=== PATIENT | male | born 1940 | race Caucasian/White ===

== ENCOUNTER 2017-03-18 17:21 | Outpatient (CLI) | payer MEDICARE | END 2017-03-18 17:22 | disposition EMS.NT | LOC: EMS 17:21 | PROVIDERS: ATTEND Surgery | DX: H53.9 Unspecified visual disturbance (principal) ==

== ENCOUNTER 2017-03-18 18:16 | Emergency (ER) | payer MEDICARE, OTHER ==
--- NOTE | 2017-03-18 19:02 | ED Physician Documentation ---
PD HPI OPHTHO - Stated complaint Stated Complaint: LOSS OF VISION - Chief complaint Chief Complaint: Heent - History obtained from History obtained from: Patient - History of Present Illness Timing - onset: How many hours ago (2), Today Timing - duration: Hours (10 29/2) Timing - details: Abrupt onset (onset at rest of right eye upper visual field loss "like someone pulled a curtain part way down over my eye". No injury/ exertion, no headache, no flashing lights. He feels vision in rest of visual field is normal. No focal weaknesses arms, legs, face.) Location: Right Quality / character: No: Itching, Burning, Aching Associated symptoms: Decreased vision. No: Redness, Swelling, Discharge, Matting, FB sensation, Photophobia, Headache Contributing factors: No: Recent URI, FB, Wears glasses, Wears contacts Similar symptoms before: Has not had sx before Recently seen: Not recently seen Review of Systems Constitutional: denies: Fever, Chills Nose: denies: Rhinorrhea / runny nose, Congestion Throat: denies: Sore throat Respiratory: denies: Cough Neurologic: denies: Focal weakness, Numbness, Confused, Altered mental status, Headache PD PAST MEDICAL HISTORY - Past Medical History Cardiovascular: None Respiratory: None Neuro: None Endocrine/Autoimmune: None - Present Medications Home Medications: Ambulatory Orders Medication Instructions Recorded Confirmed Amlodipine Besylate 1 tab PO DAILY 03/18/17 03/18/17 Atorvastatin [Lipitor] 1 tab PO DAILY 03/18/17 03/18/17 Levothyroxine [Synthroid] 1 tab PO DAILY 03/18/17 03/18/17 - Allergies Allergies/Adverse Reactions: Allergies Allergy/AdvReac Type Severity Reaction Status Date / Time No Known Drug Allergies Allergy Verified 03/18/17 18:29 PD ED PE NORMAL - Vitals Vital signs reviewed: Yes - General General: Alert and oriented X 3, No acute distress, Well developed/nourished - HEENT HEENT: PERRL, EOMI, Ears normal, Moist mucous membranes, Pharynx benign, Other ( visual field testing shows defect for upper medial and some upper lateral martinez on right eye, normal on left. 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 ). No: EOM palsy, Corneal abrasion, Fluorescein uptake, Retinal hemorrhage Results - Vitals Vitals: Vital Signs - 24 hr 03/18/17 03/18/17 03/18/17 18:24 19:19 19:51 Temperature 37.2 C Heart Rate 118 H 90 86 Respiratory 18 16 15 Rate Blood Pressure 165/83 H 130/76 148/79 H O2 Saturation 95 95 97 03/18/17 03/18/17 03/18/17 20:49 21:12 21:38 Temperature Heart Rate 85 82 76 Respiratory 15 20 15 Rate Blood Pressure 129/83 H 143/82 H 138/75 H O2 Saturation 95 96 96 Oxygen O2 Source Room air - Labs Labs: Laboratory Tests 03/18/17 03/18/17 20:56 20:56 WBC 10.9 H RBC 4.83 Hgb 14.6 Hct 42.4 MCV 87.7 MCH 30.2 MCHC 34.5 RDW 12.5 Plt Count 308 MPV 8.3 Neut # 8.5 H Lymph # 1.6 [place] # 0.7 Eos # 0.1 Baso # 0.1 Absolute Nucleated RBC 0.00 Nucleated RBCs 0.0 ESR 11 - Rads (name of study) head CT Radiology: Prelim report reviewed (no acute process) PD MEDICAL DECISION MAKING - ED course Complexity details: reviewed results (head CT without acute process), considered differential (consdier early retinal detachment, retinal artery branch occlusion, vasculitis, optic chiasm process. ), d/w patient, d/w retirement consultant (Dr. Cunningham, who felt retinal detachment less likely given no bleeding nor "flashes", etc. and artery branch occlusion more likely. No treatment but general vascular care (asa, BP, etc). To get ESR for potential vasculitis. To be seen in office tomorrow. ) Departure - Departure Disposition: Home, Self Care Clinical Impression: Visual loss Condition: Stable Record reviewed to determine appropriate education?: Yes Follow-Up: Dontae Lan MD [Primary Care Provider] - Dewey Philip MD [Provider Admit Priv/Credential] - Daniel Whitman MD [Provider Admit Priv/Credential] - Comments: Follow up with Civil [employer] tomorrow, call for appt: either local Ophthalmologists Dr. Philip or Dr. Whitman, or can see Dr. Cunningham in [place] , whose office number is [phone]. Take baby aspirin 81 mg daily. No vigorous activities. Return if worsening meanwhile. The concern is for a blockage in one of the small vessels to the retina, for which no particular treatment, or inflammation of the blood vessels, which is less likely, versus early retinal detachment. Discharge Date/Time: 03/18/17 21:39
--- NOTE | 2017-03-18 20:24 | CT Preliminary Report ---
Exam: CT Head W/O IMPRESSION: Unremarkable noncontrast head CT. No intracranial bleed or mass effect. [facility] SITE ID: [id number]
--- NOTE | 2017-03-18 20:27 | CT Report ---
EXAM: CT HEAD EXAM DATE: 03/18/2017 07:47 PM. CLINICAL HISTORY: Right upper vision loss. COMPARISON: None. TECHNIQUE: Multiaxial CT images were obtained from the foramen magnum to the vertex. IV contrast: Non e. Reformats: Coronal. In accordance with CT protocol optimization, one or more of the following dose reduction techniques w ere utilized for this exam: automated exposure control, adjustment of mA and/or KV based on patient s ize, or use of iterative reconstructive technique. FINDINGS: Parenchyma: No intraparenchymal hemorrhage. No evidence of mass, midline shift, or CT findings of inf arction. Live-white differentiation is distinct. Extraaxial Spaces: Normal for age. No subdural or epidural collections identified. Ventricles: Normal in size and position. Sinuses: Imaged paranasal sinuses, orbits, and mastoids show no significant abnormality. Bones: No evidence of fracture or calvarial defect. Other: None. IMPRESSION: Unremarkable noncontrast head CT. No intracranial bleed or mass effect. [facility] Referring Provider Line: [phone] SITE ID: [id number]
[2017-03-18] MEDS ORDERED: DEXAMETHASONE 10 MG/ML VIAL ONE (20:45)
[2017-03-18] MEDS ORDERED: ASPIRIN CHEW 81 MG TABLET ONE (20:47)
[2017-03-18] MEDS: DEXAMETHASONE 10 MG/ML VIAL PO STA (20:47)
[2017-03-18] MEDS: ASPIRIN CHEW 81 MG TABLET PO STA (20:48)
[2017-03-18 21:02] LABS: BASOPHILS # (AUTO) 0.1 10^3/uL (0.0-0.1); BASOPHILS % (AUTO) 0.6 %; EOSINOPHILS # (AUTO) 0.1 10^3/uL (0.0-0.7); EOSINOPHILS % (AUTO) 0.9 %; HCT - HEMATOCRIT 42.4 % (42.0-52.0); HGB - HEMOGLOBIN 14.6 g/dL (14.0-18.0); LYMPHOCYTES # (AUTO) 1.6 10^3/uL (1.5-3.5); LYMPHOCYTES % (AUTO) 14.7 %; MEAN CORPUSCULAR HEMOGLOBIN 30.2 pg (27.0-31.0); MEAN CORPUSCULAR HGB CONC 34.5 g/dL (32.0-36.0); MEAN CORPUSCULAR VOLUME 87.7 fL (80.0-94.0); MEAN PLATELET VOLUME 8.3 fL (7.4-11.4); MONOCYTES # (AUTO) 0.7 10^3/uL (0.0-1.0); MONOCYTES % (AUTO) 6.2 %; NEUTROPHILS # (AUTO) 8.5 10^3/uL (1.5-6.6); NEUTROPHILS % (AUTO) 77.6 %; RED BLOOD COUNT 4.83 10^6/uL (4.70-6.10); RED CELL DISTRIBUTION WIDTH 12.5 % (12.0-15.0); UNCORRECTED WHITE BLOOD COUNT 10.9 x10^3/uL; WHITE BLOOD COUNT 10.9 x10^3/uL (4.8-10.8)
[2017-03-18 21:39] VITALS: BP 138/75
== END 2017-03-18 21:39 | disposition home or self-care (01) ==
LOC: ED 18:16
DX: H54.61 Unqualified visual loss, right eye, normal vision left eye (principal)
CPT/HCPCS: 36415; 70450; 85025; 85651; 99284

== ENCOUNTER 2017-04-14 07:42 | Outpatient (CLI) | payer OTHER, MEDICARE ==
--- NOTE | 2017-04-15 10:21 | MRI Report ---
EXAM MRA BRAIN EXAM DATE: 04/14/2017 09:29 AM. CLINICAL HISTORY: Amaurosis fugax. COMPARISON: CT scan of the head without contrast 03/18/2017. TECHNIQUE: Multiplanar, multisequence MRA sequences of the brain were performed. Other: None. Post-pr ocessing: Multiplanar 3D MIP reconstructions. IV Contrast: None. FINDINGS: The right vertebral artery intradural segment is smooth and nonstenotic. The right posterior inferior cerebellar artery is without flow-limiting stenosis. The left vertebral artery intradural segment is without flow-limiting stenosis. The right and left anterior inferior cerebellar arteries are without flow-limiting stenosis. The basi lar artery is without flow-limiting stenosis. The right superior cerebellar artery and the left superior cerebellar artery are without flow-limitin g stenosis. The right and left P1 and P2 segments of the posterior cerebral arteries are without flow-limiting st enosis. The bilateral intracranial internal carotid arteries are without flow-limiting stenosis. The bilateral M1 and proximal M2 segments of the middle cerebral arteries are without flow-limiting s tenosis. The bilateral A1, A2 and A3 segments of the anterior cerebral arteries are without flow-limiting sten osis. There is a small anterior communicating artery. IMPRESSION: 1. There is no hemodynamically significant stenosis within the head. There is no evidence of cerebral aneurysm. Referring Provider Line: [phone] SITE ID: [id number]
== END 2017-04-14 07:43 | disposition home or self-care (01) ==
LOC: DI 07:42
PROVIDERS: ATTEND Internal Medicine
DX: G45.3 Amaurosis fugax (principal)
CPT/HCPCS: 70544

== ENCOUNTER 2017-11-19 06:06 | Outpatient (CLI) | payer MEDICARE | END 2017-11-19 06:07 | disposition critical access hospital (66) | LOC: EMS 06:06 | PROVIDERS: ATTEND Surgery | DX: R42 Dizziness and giddiness (principal); R11.0 Nausea | CPT/HCPCS: A0425; A0427 ==

== ENCOUNTER 2017-11-19 06:29 | Emergency (ER) | payer OTHER, MEDICARE ==
[2017-11-19 06:42] VITALS: BP 131/93
--- NOTE | 2017-11-19 07:11 | ED Physician Documentation ---
History of Present Illness - Stated complaint Stated Complaint: DIZZY/NAUSEA - Chief complaint Chief Complaint: Neuro - History obtained from History obtained from: Patient - History of Present Illness Timing: Enter time (0500), Today - Additonal information Additional information: 77-year-old male was well when he awoke at 04:00 this morning to urinate. He went to bed is usually does not get up until 5. When he awoke at 5:00 this morning he was profoundly dizzy nauseated and vomited. He has had this happen to him once previously years ago. He continues to have some dizziness especially if he moves his head or looks to the far side. He continues to have some visual field defect that he has had since a TIA last February. Review of Systems Constitutional: denies: Fever, Chills, Myalgias Eyes: reports: Decreased vision Ears: denies: Ear pain Nose: denies: Rhinorrhea / runny nose, Congestion Throat: denies: Sore throat Cardiac: denies: Chest pain / pressure, Palpitations Respiratory: denies: Dyspnea, Cough GI: denies: Abdominal Pain, Nausea, Vomiting : denies: Dysuria, Frequency Skin: denies: Rash Musculoskeletal: denies: Neck pain, Back pain, Extremity pain Neurologic: denies: Generalized weakness, Focal weakness, Numbness PD PAST MEDICAL HISTORY - Past Medical History Past Medical History: Yes Cardiovascular: High cholesterol Respiratory: None Neuro: TIA Endocrine/Autoimmune: HyPOthyroidism Other Past Medical History: Irregular HR - Past Surgical History Past Surgical History: Yes Ortho: Other - Present Medications Home Medications: Ambulatory Orders Medication Instructions Recorded Confirmed Atorvastatin [Lipitor] 1 tab PO DAILY 03/18/17 11/19/17 Amlodipine Besylate 1 tab PO DAILY 11/19/17 11/19/17 Levothyroxine Sodium 1 tab PO DAILY 11/19/17 11/19/17 Meclizine HCl 25 mg PO Q6HR PRN #20 tab.chew 11/19/17 - Allergies Allergies/Adverse Reactions: Allergies Allergy/AdvReac Type Severity Reaction Status Date / Time No Known Drug Allergies Allergy Verified 11/19/17 06:36 - Social History Does the pt smoke?: No Smoking Status: Never smoker Does the pt drink ETOH?: Yes Does the pt have substance abuse?: No - Immunizations Immunizations are current?: Yes - POLST Patient has POLST: No PD ED PE NORMAL - Vitals Vital signs reviewed: Yes (hypertensive, mild ) - General General: Alert and oriented X 3, No acute distress, Well developed/nourished - HEENT HEENT: Atraumatic, PERRL, EOMI, Other (There is cerumen bilaterally this is removed from the left side to reveal a normal TM. There are 3 beats of nystagmus to the left and one to the right. 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, No motor deficit, No sensory deficit, Normal speech Eye Opening: Spontaneous Motor: Obeys Commands Verbal: Oriented GCS Score: 15 - Psych Psych: Normal mood, Normal affect Results - Vitals Vitals: Vital Signs - 24 hr 11/19/17 11/19/17 06:30 09:14 Temperature 36.3 C L Heart Rate 82 75 Respiratory 18 16 Rate Blood Pressure 131/93 H 131/93 H O2 Saturation 95 96 Oxygen O2 Source Room air - EKG (time done) 0634 Rate: Rate (enter#) (82) Rhythm: Other (PVC's) Intervals: Prolonged QT Compare to prior EKG: Old EKG unavailable Computer interpretation: Agree with computer - Labs Labs: Laboratory Tests 11/19/17 11/19/17 11/19/17 07:38 07:38 07:38 WBC 10.0 RBC 4.80 Hgb 14.4 Hct 42.3 MCV 88.2 MCH 30.0 MCHC 34.0 RDW 13.1 Plt Count 269 MPV 7.9 Neut # 8.1 H Lymph # 1.1 L [place] # 0.5 Eos # 0.1 Baso # 0.1 Absolute Nucleated RBC 0.00 Nucleated RBC % 0.0 Sodium 134 L Potassium 4.2 Chloride 103 Carbon Dioxide 21 Anion Gap 10.0 BUN 18 Creatinine 0.8 Estimated GFR (MDRD) 94 Glucose 130 H Calcium 8.7 Total Bilirubin 0.5 AST 33 ALT 27 Alkaline Phosphatase 57 Troponin I < 0.04 Total Protein 7.2 Albumin 3.9 Globulin 3.3 Albumin/Globulin Ratio 1.2 Lipase 20 L - Rads (name of study) CT head without Radiology: Prelim report reviewed (Impression: No acute intracranial abnormality. No significant change.), EMP read indepedently, See rad report Procedures - IVC sono (time) 0725 Bedside IVC sono: IVC measures (cm) (1.68), Euvolemia PD MEDICAL DECISION MAKING - ED course Complexity details: reviewed old records, reviewed results, re-evaluated patient , considered differential, d/w patient ED course: 77-year-old male with a history of prior TIA and hypertension has developed acute vertigo this morning including some nausea and vomiting is been getting some Zofran in route no longer nauseous he does have nystagmus present and there have been an inordinate number of cases of labyrinthitis in the past 3 weeks. He is administered meclizine 25 mg orally. Departure - Departure Disposition: 01 Home, Self Care Clinical Impression: Labyrinthitis Qualifiers: Laterality: bilateral Qualified Code(s): H83.03 - Labyrinthitis, bilateral Condition: Stable Instructions: ED Labyrinthitis Follow-Up: Dontae Lan MD [Primary Care Provider] - Prescriptions: Meclizine HCl 25 mg PO Q6HR PRN #20 tab.chew PRN Reason: Dizziness Discharge Date/Time: 11/19/17 09:16
--- NOTE | 2017-11-19 07:21 | CT Report ---
EXAM: CT HEAD EXAM DATE: 11/19/2017 07:14 AM. CLINICAL HISTORY: Sudden onset vertigo. COMPARISON: Head CT 03/09/2017. TECHNIQUE: Multiaxial CT images were obtained from the foramen magnum to the vertex. Reformats: Coron al. IV contrast: None. In accordance with CT protocol optimization, one or more of the following dose reduction techniques w ere utilized for this exam: automated exposure control, adjustment of mA and/or KV based on patient s ize, or use of iterative reconstructive technique. FINDINGS: Parenchyma: Evidence of mild diffuse parenchymal volume loss. No acute hemorrhage, mass effect, or mi dline shift. Small amount of low attenuation in the periventricular white matter. Live-white differen tiation appears maintained. Extraaxial Spaces: No acute extra-axial collection. Ventricles: Appropriate in size and configuration. Sinuses and Orbits: Imaged paranasal sinuses, orbits, and mastoids show no significant abnormality. Bones: No depressed skull fracture. Other: None. IMPRESSION: No acute intracranial abnormality. No significant change. [facility] Referring Provider Line: [phone] SITE ID: [id number]
[2017-11-19] MEDS ORDERED: MECLIZINE 12.5 MG TABLET PO STA (07:27)
[2017-11-19 07:50] LABS: BASOPHILS # (AUTO) 0.1 10^3/uL (0.0-0.1); BASOPHILS % (AUTO) 0.6 %; EOSINOPHILS # (AUTO) 0.1 10^3/uL (0.0-0.7); EOSINOPHILS % (AUTO) 1.3 %; HGB - HEMOGLOBIN 14.4 g/dL (14.0-18.0); LYMPHOCYTES # (AUTO) 1.1 10^3/uL (1.5-3.5); LYMPHOCYTES % (AUTO) 11.4 %; MEAN CORPUSCULAR VOLUME 88.2 fL (80.0-94.0); MEAN PLATELET VOLUME 7.9 fL (7.4-11.4); MONOCYTES # (AUTO) 0.5 10^3/uL (0.0-1.0); MONOCYTES % (AUTO) 5.1 %; NEUTROPHILS # (AUTO) 8.1 10^3/uL (1.5-6.6); NEUTROPHILS % (AUTO) 81.6 %; PLT - PLATELET COUNT 269 10^3/uL (130-450); RED CELL DISTRIBUTION WIDTH 13.1 % (12.0-15.0)
[2017-11-19 07:58] LABS: ALBUMIN 3.9 g/dL (3.2-5.5); ALBUMIN/GLOBULIN RATIO 1.2 (1.0-2.2); BILIRUBIN,TOTAL 0.5 mg/dL (0.2-1.0); CALCIUM 8.7 mg/dL (8.5-10.3); CREATININE 0.8 mg/dL (0.6-1.2); TOTAL PROTEIN 7.2 g/dL (6.7-8.2)
== END 2017-11-19 09:16 | disposition home or self-care (01) ==
LOC: EDUNIT# → ED 06:29
DX: H83.03 Labyrinthitis, bilateral (principal); R94.31 Abnormal electrocardiogram [ECG] [EKG]; I10 Essential (primary) hypertension; E78.00 Pure hypercholesterolemia, unspecified; E03.9 Hypothyroidism, unspecified; Z86.73 Personal history of transient ischemic attack (TIA), and cerebral infarction without residual deficits
CPT/HCPCS: 36415; 70450; 80053; 83690; 84484; 85025; 93005; 99283; 99284; A9270

== ENCOUNTER 2018-03-03 21:21 | Outpatient (CLI) | payer MEDICARE, OTHER | END 2018-03-03 21:22 | disposition critical access hospital (66) | LOC: EMS 21:21 | PROVIDERS: ATTEND Surgery | DX: R42 Dizziness and giddiness (principal); R00.0 Tachycardia, unspecified; R00.2 Palpitations; R03.0 Elevated blood-pressure reading, without diagnosis of hypertension | CPT/HCPCS: A0425; A0427 ==

== ENCOUNTER 2018-03-03 22:09 | Emergency (ER) | payer OTHER, MEDICARE ==
[~2018-03-03 22:09] MED LIST: METOPROLOL 5 MG/5 ML VIAL IVP STA
--- NOTE | 2018-03-03 22:13 | ED Physician Documentation ---
History of Present Illness - Stated complaint Stated Complaint: DIZZY, RAPID HEART RATE, HIGH BP - Chief complaint Chief Complaint: Cardiac - History obtained from History obtained from: Patient, EMS - Treatment prior to arrival Treatment prior to arrival: Medics administered Adenosine 6 mg IV, without change. - Additonal information Additional information: ,The patient is a 77-year-old male with history of coronary artery disease, who presents with sudden onset of dizziness and palpitations that started about 1 hour prior to arrival when he was laughing at cartoons on the television. He has felt a rapid pulse. He denies chest pain, shortness of breath, nausea or vomiting. Paramedics administered adenosine 6 mg IV in the prehospital setting. There was no change in his rhythm. The patient's medication includes amlodipine, 5 mg daily. Review of Systems Constitutional: denies: Fever Ears: denies: Tinnitus/ringing Nose: denies: Congestion Throat: denies: Sore throat Cardiac: reports: Palpitations. denies: Chest pain / pressure Respiratory: denies: Dyspnea, Cough GI: denies: Abdominal Pain, Nausea, Vomiting : denies: Dysuria Skin: denies: Rash Musculoskeletal: denies: Back pain, Extremity swelling Neurologic: denies: Focal weakness, Numbness, Headache PD PAST MEDICAL HISTORY - Past Medical History Past Medical History: Yes Cardiovascular: Hypertension, High cholesterol Respiratory: None Neuro: CVA, TIA Endocrine/Autoimmune: HyPOthyroidism - Past Surgical History Past Surgical History: Yes Ortho: Other - Present Medications Home Medications: Ambulatory Orders Medication Instructions Recorded Confirmed Atorvastatin [Lipitor] 1 tab PO DAILY 03/18/17 03/03/18 Amlodipine Besylate 1 tab PO DAILY 11/19/17 03/03/18 Levothyroxine Sodium 1 tab PO DAILY 11/19/17 03/03/18 Meclizine HCl 25 mg PO Q6HR PRN #20 tab.chew 11/19/17 Aspirin [Children's Aspirin] 81 mg PO DAILY 03/03/18 03/03/18 Metoprolol Succinate 12.5 mg PO DAILY #30 tab.er.24h 03/04/18 - Allergies Allergies/Adverse Reactions: Allergies Allergy/AdvReac Type Severity Reaction Status Date / Time No Known Drug Allergies Allergy Verified 11/19/17 06:36 - Social History Does the pt smoke?: No Smoking Status: Never smoker Does the pt drink ETOH?: Yes Does the pt have substance abuse?: No - Immunizations Immunizations are current?: Yes - POLST Patient has POLST: No PD ED PE NORMAL - Vitals Vital signs reviewed: Yes (tachycardic) - General General: Alert and oriented X 3, Well developed/nourished - HEENT HEENT: Atraumatic, Moist mucous membranes - Neck Neck: Supple, no meningeal sign, No adenopathy, No JVD - Cardiac Cardiac: No murmur, Other (Rapid rate, regular rhythm.) - Respiratory Respiratory: No respiratory distress, Clear bilaterally - Abdomen Abdomen: Soft, Non tender - Back Back: No CVA TTP - Derm Derm: No rash - Extremities Extremities: No edema, No calf tenderness / cord - Neuro Neuro: Alert and oriented X 3, No motor deficit, No sensory deficit Results - Vitals Vitals: Vital Signs - 24 hr 03/03/18 03/03/18 03/03/18 21:56 22:13 22:16 Temperature 36.6 C Heart Rate 137 H 136 H 129 H Respiratory 18 Rate Blood Pressure 146/92 H 140/96 H 119/92 H O2 Saturation 96 03/03/18 03/03/18 03/03/18 22:20 22:26 22:31 Temperature Heart Rate 127 H 129 H 129 H Respiratory 17 Rate Blood Pressure 120/87 H 122/82 H 113/85 H O2 Saturation 92 03/03/18 03/03/18 03/03/18 22:36 22:43 22:46 Temperature Heart Rate 128 H 86 78 Respiratory 18 Rate Blood Pressure 113/81 H 100/72 122/80 O2 Saturation 94 03/03/18 03/03/18 03/03/18 23:00 23:17 23:49 Temperature Heart Rate 81 84 92 Respiratory 22 17 Rate Blood Pressure 115/81 H 114/67 125/63 O2 Saturation 95 93 03/04/18 03/04/18 00:31 01:28 Temperature Heart Rate 86 87 Respiratory 18 17 Rate Blood Pressure 115/71 115/60 O2 Saturation 94 95 Oxygen O2 Source Room air - EKG (time done) 22:03 Rate: Rate (enter#) (136) Rhythm: Sinus tachycardia [place]: Normal Intervals: Prolonged QT Ischemia: Non specific changes (probably rate related) Compare to prior EKG: Changed from prior EKG (tachycardia is new; QRS morphology is unchanged.) Computer interpretation: Agree with computer - Labs Labs: Laboratory Tests 03/03/18 03/03/18 03/03/18 22:19 22:19 22:19 WBC 8.3 RBC 4.94 Hgb 14.5 Hct 44.2 MCV 89.6 MCH 29.3 MCHC 32.7 RDW 12.8 Plt Count 274 MPV 7.9 Neut # 6.0 Lymph # 1.5 [place] # 0.5 Eos # 0.1 Baso # 0.1 Absolute Nucleated RBC 0.02 Nucleated RBC % 0.2 Sodium 135 Potassium 3.6 Chloride 104 Carbon Dioxide 21 Anion Gap 10.0 BUN 16 Creatinine 1.0 Estimated GFR (MDRD) 73 L Glucose 140 H Calcium 8.3 L Total Bilirubin 0.8 AST 31 ALT 25 Alkaline Phosphatase 61 Troponin I < 0.04 Total Protein 7.2 Albumin 3.8 Globulin 3.4 Albumin/Globulin Ratio 1.1 Lipase 17 L PD MEDICAL DECISION MAKING - ED course Complexity details: reviewed results, re-evaluated patient, considered differential, d/w patient, d/w databases computer consultant ED course: The patient's presentation is significant for supraventricular tachycardia, with an initial rate in the 130s. His presentation is not suggestive of cardiac ischemia. Treatment in the emergency department included administration of metoprolol 5 mg IV 2, which resulted in conversion to normal sinus rhythm. However the patient subsequently developed bigeminy pattern, with narrow complex bigeminy beats. I consulted sales secretary metal extrusion supervisor at [facility]. He advises discharging the patient on a low dose of metoprolol, and subsequent follow up with an resident services manager. Prior to discharge the patient was administered metoprolol 12.5 mg orally. He is being discharged with prescription for metoprolol, 12.5 mg daily. I discussed with him the diagnosis, the importance of outpatient follow-up in referral to resident services manager, as well as potentially worrisome signs or symptoms that should prompt reevaluation in the emergency department. Departure - Departure Disposition: 01 Home, Self Care Clinical Impression: Supraventricular tachycardia, Supraventricular bigeminy Condition: Stable Instructions: ED Tachycardia Pat PSVT Follow-Up: [facility] [Provider Group] Prescriptions: Metoprolol Succinate 12.5 mg PO DAILY #30 tab.er.24h Comments: Take metoprolol 12.5 mg daily as prescribed. Follow up with your primary physician within 1-2 weeks. Call to schedule appointment. Consider referral to a sales secretary for evaluation of bigeminy. Return to the emergency department if you develop recurrent or increasing dizziness, lightheadedness, palpitations, chest pain, shortness of breath, or otherwise worsening symptoms. Discharge Date/Time: 03/04/18 01:45
[2018-03-03] MEDS ORDERED: METOPROLOL 5 MG/5 ML VIAL IVP ONE (22:18)
[2018-03-03] MEDS ORDERED: METOPROLOL 5 MG/5 ML VIAL IVP STA (22:22)
[2018-03-03] MEDS ORDERED: SODIUM CHLORIDE 0.9% 500 ML IV ONE (22:23)
[2018-03-03 22:27] LABS: BASOPHILS # (AUTO) 0.1 10^3/uL (0.0-0.1); BASOPHILS % (AUTO) 1.1 %; EOSINOPHILS # (AUTO) 0.1 10^3/uL (0.0-0.7); EOSINOPHILS % (AUTO) 1.7 %; HGB - HEMOGLOBIN 14.5 g/dL (14.0-18.0); LYMPHOCYTES # (AUTO) 1.5 10^3/uL (1.5-3.5); LYMPHOCYTES % (AUTO) 18.4 %; MEAN CORPUSCULAR HEMOGLOBIN 29.3 pg (27.0-31.0); MEAN CORPUSCULAR HGB CONC 32.7 g/dL (32.0-36.0); MEAN CORPUSCULAR VOLUME 89.6 fL (80.0-94.0); MEAN PLATELET VOLUME 7.9 fL (7.4-11.4); MONOCYTES # (AUTO) 0.5 10^3/uL (0.0-1.0); MONOCYTES % (AUTO) 6.4 %; NEUTROPHILS % (AUTO) 72.4 %; PLT - PLATELET COUNT 274 10^3/uL (130-450); RED BLOOD COUNT 4.94 10^6/uL (4.70-6.10); RED CELL DISTRIBUTION WIDTH 12.8 % (12.0-15.0); WHITE BLOOD COUNT 8.3 x10^3/uL (4.8-10.8)
[2018-03-03 22:40] LABS: ALBUMIN 3.8 g/dL (3.2-5.5); ALBUMIN/GLOBULIN RATIO 1.1 (1.0-2.2); BILIRUBIN,TOTAL 0.8 mg/dL (0.2-1.0); CALCIUM 8.3 mg/dL (8.5-10.3); TOTAL PROTEIN 7.2 g/dL (6.7-8.2)
[2018-03-04] MEDS ORDERED: METOPROLOL SUCCINATE 25 MG TABLET PO STA (00:14)
[2018-03-04 01:29] VITALS: BP 115/60
== END 2018-03-04 01:45 | disposition home or self-care (01) ==
LOC: ED 22:09
DX: I47.1 Supraventricular tachycardia (principal); R00.8 Other abnormalities of heart beat; I10 Essential (primary) hypertension; I45.81 Long QT syndrome; Z79.82 Long term (current) use of aspirin; Z86.79 Personal history of other diseases of the circulatory system
CPT/HCPCS: 36415; 80053; 83690; 84484; 85025; 93005; 96361; 96374; 99284; A9270

== ENCOUNTER 2021-06-05 22:02 | Outpatient (CLI) | payer OTHER, MEDICARE | END 2021-06-05 22:03 | disposition EMS.NT | LOC: EMS 22:02 | DX: R50.9 Fever, unspecified (principal); R07.9 Chest pain, unspecified ==

== ENCOUNTER 2021-06-23 08:57 | Emergency (ER) | payer MEDICARE, OTHER ==
--- NOTE | 2021-06-23 09:20 | ED Physician Documentation ---
PD HPI DYSPNEA - Stated complaint Stated Complaint: SOA,COUGH,FEVER - Chief complaint Chief Complaint: Resp - History obtained from History obtained from: Patient - Additional information Additional information: 80-year-old gentleman with history of SVT but no other heart or lung disease presents with 2 weeks of shortness of breath that has been progressive and worse with ambulation, fever up to 101 at times, and cough productive of clear sputum. States that the symptoms are worse with exertion but better laying supine. No pedal edema or calf pain. He smoked but quit 50 years ago. Has been immunized against Covid. Review of Systems Ten Systems: 10 systems reviewed and negative Constitutional: reports: Fever, Fatigue Cardiac: denies: Chest pain / pressure, Palpitations, Pedal edema, Calf pain Respiratory: reports: Dyspnea, Cough. denies: Hemoptysis, Wheezing PD PAST MEDICAL HISTORY - Past Medical History Cardiovascular: Hypertension, High cholesterol Respiratory: None Endocrine/Autoimmune: HyPOthyroidism - Past Surgical History Past Surgical History: Yes Ortho: Other - Present Medications Home Medications: Ambulatory Orders Medication Instructions Recorded Confirmed Atorvastatin [Lipitor] 1 tab PO DAILY 03/18/17 03/03/18 Amlodipine Besylate 1 tab PO DAILY 11/19/17 03/03/18 Levothyroxine Sodium 1 tab PO DAILY 11/19/17 03/03/18 Meclizine HCl 25 mg PO Q6HR PRN #20 tab.chew 11/19/17 Aspirin [Children's Aspirin] 81 mg PO DAILY 03/03/18 03/03/18 Metoprolol Succinate 12.5 mg PO DAILY #30 tab.er.24h 03/04/18 - Allergies Allergies/Adverse Reactions: Allergies Allergy/AdvReac Type Severity Reaction Status Date / Time No Known Drug Allergies Allergy Verified 06/23/21 09:18 - Social History Does the pt smoke?: No Smoking Status: Never smoker Does the pt drink ETOH?: Yes Does the pt have substance abuse?: No - Immunizations Immunizations are current?: Yes - POLST Patient has POLST: No PD ED PE NORMAL - Vitals Vital signs reviewed: Yes - General General: Alert and oriented X 3, No acute distress - HEENT HEENT: PERRL, EOMI - Neck Neck: Supple, no meningeal sign, No bony TTP, No JVD - Cardiac Cardiac: Other (Slight tachycardia, no murmur) - Respiratory Respiratory: No respiratory distress, Clear bilaterally - Abdomen Abdomen: Soft, Non tender - Back Back: No CVA TTP, No spinal TTP - Derm Derm: Normal color, Warm and dry - Extremities Extremities: No edema, No calf tenderness / cord - Neuro Neuro: Alert and oriented X 3, Normal speech Results - Vitals Vitals: Vital Signs - 24 hr 06/23/21 06/23/21 06/23/21 11:30 12:00 13:00 Heart Rate 77 87 81 Respiratory 20 20 20 Rate Blood Pressure 111/73 121/83 H 115/77 O2 Saturation 96 96 96 06/23/21 06/23/21 06/23/21 15:08 15:45 16:00 Heart Rate 84 128 H 144 H Respiratory 18 18 22 Rate Blood Pressure 104/75 93/81 H 101/78 O2 Saturation 96 96 97 06/23/21 06/23/21 06/23/21 16:07 16:10 16:15 Heart Rate 147 H 156 H 122 H Respiratory 22 22 22 Rate Blood Pressure 93/79 97/70 98/70 O2 Saturation 96 96 96 06/23/21 06/23/21 06/23/21 16:20 16:30 16:45 Heart Rate 122 H 131 H 121 H Respiratory 22 20 22 Rate Blood Pressure 98/70 106/79 89/61 L O2 Saturation 96 96 95 06/23/21 06/23/21 06/23/21 17:00 17:30 17:45 Heart Rate 112 H 117 H 118 H Respiratory 20 22 22 Rate Blood Pressure 86/66 L 92/77 87/65 L O2 Saturation 96 96 96 06/23/21 06/23/21 06/23/21 18:08 19:21 19:32 Heart Rate 153 H Respiratory 26 H Rate Blood Pressure 84/66 L 84/63 L 117/76 O2 Saturation 97 06/23/21 20:04 Heart Rate 89 Respiratory 20 Rate Blood Pressure 94/58 L O2 Saturation 97 Oxygen O2 Source Room air - EKG (time done) 0958 Rate: Rate (enter#) (93) Rhythm: NSR [place]: Normal QRS: Low voltage Ischemia: Non specific changes. No: ST elevation c/w ischemia, ST depression, Q waves Computer interpretation: Agree with computer 1546 Rate: Rate (enter#) (116) Rhythm: Atrial fibrillation [place]: Normal QRS: Low voltage Ischemia: Non specific changes - Labs Labs: Laboratory Tests 06/23/21 06/23/21 06/23/21 09:31 09:31 09:31 WBC 12.5 H RBC 3.68 L Hgb 11.0 L Hct 33.0 L MCV 89.7 MCH 29.9 MCHC 33.3 RDW 12.5 Plt Count 469 H MPV 9.3 Neut # (Auto) 9.9 H Lymph # (Auto) 1.6 Johnson # (Auto) 0.8 Eos # (Auto) 0.0 Baso # (Auto) 0.1 Absolute Nucleated RBC 0.00 Nucleated RBC % 0.0 ESR D-Dimer 880.8 H Sodium 129 L Potassium 4.0 Chloride 101 Carbon Dioxide 20 L Anion Gap 8.0 BUN 20 Creatinine 0.9 Estimated GFR (MDRD) 81 L Glucose 121 H Lactic Acid Calcium 8.8 Troponin I High Sens C-Reactive Protein B-Natriuretic Peptide Nasal Adenovirus (PCR) Nasal B. parapertussis DNA (PCR) Nasal Coronavir 229E PCR Nasal Coronavir HKU1 PCR Nasal Coronavir NL63 PCR Nasal Coronavir OC43 PCR Nasal Enterovir/Rhinovir PCR Nasal Influenza B PCR Nasal Influenza A PCR Nasal Parainfluen 1 PCR Nasal Parainfluen 2 PCR Nasal Parainfluen 3 PCR Nasal Parainfluen 4 PCR Nasal RSV (PCR) Nasal B.pertussis DNA PCR Nasal C.pneumoniae (PCR) Pollo Human Metapneumo PCR Nasal M.pneumoniae (PCR) Nasal SARS-CoV-2 (PCR) 06/23/21 06/23/21 06/23/21 09:31 09:31 09:31 WBC RBC Hgb Hct MCV MCH MCHC RDW Plt Count MPV Neut # (Auto) Lymph # (Auto) Johnson # (Auto) Eos # (Auto) Baso # (Auto) Absolute Nucleated RBC Nucleated RBC % ESR 22 H D-Dimer Sodium Potassium Chloride Carbon Dioxide Anion Gap BUN Creatinine Estimated GFR (MDRD) Glucose Lactic Acid Calcium Troponin I High Sens 8.1 C-Reactive Protein B-Natriuretic Peptide 125 H Nasal Adenovirus (PCR) Nasal B. parapertussis DNA (PCR) Nasal Coronavir 229E PCR Nasal Coronavir HKU1 PCR Nasal Coronavir NL63 PCR Nasal Coronavir OC43 PCR Nasal Enterovir/Rhinovir PCR Nasal Influenza B PCR Nasal Influenza A PCR Nasal Parainfluen 1 PCR Nasal Parainfluen 2 PCR Nasal Parainfluen 3 PCR Nasal Parainfluen 4 PCR Nasal RSV (PCR) Nasal B.pertussis DNA PCR Nasal C.pneumoniae (PCR) Pollo Human Metapneumo PCR Nasal M.pneumoniae (PCR) Nasal SARS-CoV-2 (PCR) 06/23/21 06/23/21 06/23/21 09:31 10:23 11:46 WBC RBC Hgb Hct MCV MCH MCHC RDW Plt Count MPV Neut # (Auto) Lymph # (Auto) Johnson # (Auto) Eos # (Auto) Baso # (Auto) Absolute Nucleated RBC Nucleated RBC % ESR D-Dimer Sodium Potassium Chloride Carbon Dioxide Anion Gap BUN Creatinine Estimated GFR (MDRD) Glucose Lactic Acid 0.9 Calcium Troponin I High Sens C-Reactive Protein 8.4 H B-Natriuretic Peptide Nasal Adenovirus (PCR) NOT DETECTED Nasal B. parapertussis DNA (PCR) NOT DETECTED Nasal Coronavir 229E PCR NOT DETECTED Nasal Coronavir HKU1 PCR NOT DETECTED Nasal Coronavir NL63 PCR NOT DETECTED Nasal Coronavir OC43 PCR NOT DETECTED Nasal Enterovir/Rhinovir PCR NOT DETECTED Nasal Influenza B PCR NOT DETECTED Nasal Influenza A PCR NOT DETECTED Nasal Parainfluen 1 PCR NOT DETECTED Nasal Parainfluen 2 PCR NOT DETECTED Nasal Parainfluen 3 PCR NOT DETECTED Nasal Parainfluen 4 PCR NOT DETECTED Nasal RSV (PCR) NOT DETECTED Nasal B.pertussis DNA PCR NOT DETECTED Nasal C.pneumoniae (PCR) NOT DETECTED Pollo Human Metapneumo PCR NOT DETECTED Nasal M.pneumoniae (PCR) NOT DETECTED Nasal SARS-CoV-2 (PCR) NOT DETECTED - Rads (name of study) 1v cxr Radiology: EMP read contemporaneously (Bilateral effusions, left greater than right) PD MEDICAL DECISION MAKING - ED course ED course: 80-year-old gentleman presents with progressive shortness of breath and a fever at home. Examination only shows modest tachycardia. Initial work-up here shows bilateral pleural effusions on chest x-ray, left greater than right and low voltage on his EKG. He does have a mild leukocytosis and moderate hyponatremia. His D-dimer was elevated and this was followed with a CT angiography study showing no PE but he does have a large pericardial effusion with some concern fo r tamponade although clinically he looks very stable and he has small right and moderate left-sided pleural effusion. There is consolidation at the left lung base which could represent compressive atelectasis, aspiration, or pneumonia. Given concern for PNA with parapneumonic effusion he was given unasyn per UTD recs afterb bcx x2. I discussed with our hospitalist, Dr. Johnston, this is a complicated case, she recommended reaching out to cardiology before consideration of admission here. I did this, and spoke with Dr. Parth Burns at [facility] who recommended echocardiography at this point for further evaluation. PSI 109, class IV I was subsequently notified that echocardiography is not available today. We called the [facility], spoke with Dorothea the officer of the day, no beds available. [facility] was paged and they had me talk with Dr. Larry Hogan their regional administrative assistant mailing section clerk. While waiting for [facility] to call us back to give us a bed at approximately 3:50 PM I noticed that it appeared to be that he had gone into atrial fibrillation on the monitor. He states he has had previous episodes of what sounds like may be PACs and is on metoprolol for same. He was in rapid A. fib and was given some IV metoprolol. [facility] was a very tight on bed so we also called the [facility] to see if there were other options available. Around 6:00 I spoke with the regional administrative assistant on-call at [facility] and spoke with Dr. Dover (?sp) who agrees with transfer to their ICU. Subsequently was accepted by Dr. Hull to the [facility] ICU at 1815 pending bed availability. With a rapid A. fib he did develop some soft pressures in the range of 90/60 and received a 500 mL fluid bolus. He was awake and conversant with no specific complaints at that time. He did require repeat dosing of metoprolol for persistent tachycardia with borderline hypotension. - Critical Care Time(min): 45 Time Includes: Direct patient care, Review records, Reassess patient, Document care, Coordinate care, Medical consult Data interpretation: Labs, Pulse ox Procedures excluded from critical care time: EKG Departure - Departure Disposition: 02 Transfer Acute Care Hosp Clinical Impression: Parapneumonic effusion, Pericardial effusion, Atrial fibrillation with RVR Pneumonia Qualifiers: Pneumonia type: due to unspecified organism Laterality: left Lung location: lower lobe of lung Qualified Code(s): J18.9 - Pneumonia, unspecified organism Dyspnea Qualifiers: Dyspnea type: dyspnea on exertion Qualified Code(s): R06.00 - Dyspnea, unspe cified Condition: Serious Discharge Date/Time: 06/23/21 21:18
[2021-06-23 09:37] LABS: BASOPHILS # (AUTO) 0.1 10^3/uL (0.0-0.1); BASOPHILS % (AUTO) 0.6 %; EOSINOPHILS % (AUTO) 0.3 %; LYMPHOCYTES # (AUTO) 1.6 10^3/uL (1.5-3.5); LYMPHOCYTES % (AUTO) 12.9 %; MEAN CORPUSCULAR HEMOGLOBIN 29.9 pg (27.0-31.0); MEAN CORPUSCULAR HGB CONC 33.3 g/dL (32.0-36.0); MEAN CORPUSCULAR VOLUME 89.7 fL (80.0-94.0); MEAN PLATELET VOLUME 9.3 fL (7.4-11.4); MONOCYTES # (AUTO) 0.8 10^3/uL (0.0-1.0); MONOCYTES % (AUTO) 6.5 %; NEUTROPHILS # (AUTO) 9.9 10^3/uL (1.5-6.6); NEUTROPHILS % (AUTO) 79.2 %; PLT - PLATELET COUNT 469 10^3/uL (130-450); RED BLOOD COUNT 3.68 10^6/uL (4.70-6.10); RED CELL DISTRIBUTION WIDTH 12.5 % (12.0-15.0); WHITE BLOOD COUNT 12.5 x10^3/uL (4.8-10.8)
[2021-06-23] MEDS ORDERED: IOPAMIDOL-300 50 ML VIAL ONE (10:02)
[2021-06-23 10:10] LABS: CALCIUM 8.8 mg/dL (8.5-10.3); CREATININE 0.9 mg/dL (0.6-1.2)
--- NOTE | 2021-06-23 10:14 | XRAY Report ---
PROCEDURE: Chest 1 View X-Ray INDICATIONS: dyspnea TECHNIQUE: One view of the chest was acquired. COMPARISON: none FINDINGS: Surgical changes and devices: None. Lungs and pleura: Moderate left and minimal to mild right effusions. Mediastinum: Mediastinal contours appear normal. Heart size is enlarged. Bones and chest wall: No suspicious bony lesions. Overlying soft tissues appear unremarkable. IMPRESSION: Bilateral effusions, left greater than right. Underlying areas of pneumonia, atelectasis and/or mass lesion cannot be excluded. Recommend interval followup to document resolution. Reviewed by: Britta Song MD on 06/23/2021 10:12 AM PDT Approved by: Britta Song MD on 06/23/2021 10:12 AM PDT Station ID: [id number]
[2021-06-23] MEDS ORDERED: IOPAMIDOL-300 50 ML VIAL IVP ONE (11:00)
--- NOTE | 2021-06-23 11:14 | CT Report ---
PROCEDURE: ANGIO CHEST W/WO INDICATIONS: dyspnea, high dimer, pe protocol CONTRAST: IV CONTRAST: Isovue 300 ml: 80 PO CONTRAST: *NO PO CONTRAST TECHNIQUE: After the administration of intravenous contrast, images were acquired from the pulmonary apices to t he posterior costophrenic angles. 3-dimensional maximum intensity projection (MIP) coronal and sagit pepe reformats were then acquired through the thorax. For radiation dose reduction, the following was used: automated exposure control, adjustment of mA and/or kV according to patient size. COMPARISON: Chest x-ray 06/23/2021 FINDINGS: Image quality: Excellent. Pulmonary arteries: Pulmonary arteries are normal in size, and demonstrate no intraluminal filling d efects to suggest central pulmonary embolism. Lungs and pleura: Small right and moderate-sized left pleural effusions. Consolidation noted in the l eft lung base which could represent compressive atelectasis, aspiration or pneumonia. No pneumothorax . Central and peripheral airways are patent. Mediastinum: Heart size is normal. Large pericardial effusion noted measuring up to 3 cm in thicknes s. Slight reflux of contrast material into the IVC noted. Atherosclerotic calcifications noted in the aorta, great vessels and coronary vasculature. No mediastinal or hilar adenopathy. Thoracic aorta is normal in caliber and enhancement. Esophagus is normal in caliber, without hiatal hernia. Bones and chest wall: No suspicious bony lesions. Ribs and thoracic spine appear intact throughout. No axillary or supraclavicular adenopathy. The thyroid is normal in size and there are no incident al findings. Abdomen: Visualized upper abdominal solid organs appear normal in the early arterial phase of enhanc ement. IMPRESSION: 1. No pulmonary embolus. 2. Large pericardial effusion. There is slight reflux of contrast material in the IVC which is a nons pecific finding but can be related to right heart failure or cardiac tamponade. 3. Small right and moderate-sized left pleural effusions. 4. Consolidation left lung base which could represent compressive atelectasis, aspiration or pneumoni a. Reviewed by: Fatuma Devine MD, PhD on 06/23/2021 11:13 AM PDT Approved by: Fatuma Devine MD, PhD on 06/23/2021 11:13 AM PDT Station ID: [id number]
[2021-06-23 11:17] LABS: B. PARAPERTUSSIS- RESP PCR PAN NOT DETECTED; B. PERTUSSIS- RESP PCR PANEL NOT DETECTED; C. PNEUMONIAE- RESP PCR PANEL NOT DETECTED; CORONAVIRUS 229E-RESP PCR NOT DETECTED; CORONAVIRUS HKU1-RESP PCR NOT DETECTED; CORONAVIRUS NL63-RESP PCR NOT DETECTED; CORONAVIRUS OC43-RESP PCR NOT DETECTED; HUMAN METAPNEUMOVIRUS NOT DETECTED; INFLUENZA A- RESP PCR PANEL NOT DETECTED; INFLUENZA B - RESP PCR PANEL NOT DETECTED; M. PNEUMONIAE- RESP PCR PANEL NOT DETECTED; PARAINFLUENZA VIRUS 1 NOT DETECTED; PARAINFLUENZA VIRUS 2 NOT DETECTED; PARAINFLUENZA VIRUS 3 NOT DETECTED; PARAINFLUENZA VIRUS 4 NOT DETECTED; RHINOVIRUS/ENTEROVIRUS NOT DETECTED; RSV- RESP PCR PANEL NOT DETECTED; SARS-CoV-2 -RESP PCR PANEL NOT DETECTED
[2021-06-23] MEDS ORDERED: AMPICILLIN/SULBACTAM 3 GM in SODIUM CHLORIDE 0.9% MINIBAG 100 ML IV STA (11:48)
[2021-06-23] MEDS ORDERED: METOPROLOL 5 MG/5 ML VIAL IVP STA ×2 (15:58→19:09)
[2021-06-23] MEDS ORDERED: SODIUM CHLORIDE 0.9% 500 ML IV STA ×2 (17:12→19:22)
[2021-06-23] MEDS ORDERED: AMPICILLIN/SULBACTAM 3 GM in SODIUM CHLORIDE 0.9% MINIBAG 100 ML IV SCH (20:00)
[2021-06-23 20:05] VITALS: BP 94/58
== END 2021-06-23 21:18 | disposition short-term general hospital (02) ==
LOC: ED 08:57
DX: J90 Pleural effusion, not elsewhere classified (principal); I30.9 Acute pericarditis, unspecified; J18.9 Pneumonia, unspecified organism; I48.91 Unspecified atrial fibrillation; D72.829 Elevated white blood cell count, unspecified; E87.1 Hypo-osmolality and hyponatremia; R79.89 Other specified abnormal findings of blood chemistry; Z87.891 Personal history of nicotine dependence; Z20.822 Contact with and (suspected) exposure to COVID-19
CPT/HCPCS: 36415; 71045; 71275; 80048; 83605; 83880; 84484; 85025; 85379; 85651; 86140; 87040; 87631; 93005; 96361; 96365; 96375; 99285; 99291; Q9967; 0202U

== ENCOUNTER 2021-06-23 21:12 | Outpatient (CLI) | payer MEDICARE | END 2021-06-23 21:13 | disposition short-term general hospital (02) | LOC: EMS 21:12 | PROVIDERS: ATTEND Emergency Medicine | DX: I31.3 Pericardial effusion (noninflammatory) (principal); J90 Pleural effusion, not elsewhere classified | CPT/HCPCS: A0425; A0428 ==

== ENCOUNTER 2021-08-01 15:41 | Emergency (ER) | payer MEDICARE ==
[2021-08-01 15:52] VITALS: BP 132/83
--- NOTE | 2021-08-01 16:16 | ED Physician Documentation ---
PD HPI FEMALE - Stated complaint Stated Complaint: MALE - Chief complaint Chief Complaint: Abd Pain - History obtained from History obtained from: Patient - History of Present Illness Timing - onset: How many weeks ago (intermittent for several weeks) Timing - details: Gradual onset, Waxing and waning Pain level max: 0 Pain level max: 0 Associated symptoms: No: Fever, Abdominal pain, Back pain, Pelvic pain - Additional information Additional information: Patient is a 80-year-old male who presents to the emergency department complaint of intermittent constipation for the past month or so. He states that occurs every 3 to 4 days. Nothing makes it better or worse. No abdominal pain. No fevers. No chills. He states he had a normal colonoscopy 2 years ago. No nausea or vomiting. Review of Systems Constitutional: denies: Fever GI: denies: Vomiting, Diarrhea Skin: denies: Rash Musculoskeletal: denies: Neck pain, Back pain Neurologic: denies: Headache PD PAST MEDICAL HISTORY - Past Medical History Past Medical History: Yes Cardiovascular: Hypertension, High cholesterol Respiratory: None Neuro: None Endocrine/Autoimmune: HyPOthyroidism GI: None : None HEENT: None Psych: None Musculoskeletal: None Derm: None - Past Surgical History Past Surgical History: Yes Ortho: Other - Present Medications Home Medications: Ambulatory Orders Medication Instructions Recorded Confirmed Atorvastatin [Lipitor] 1 tab PO DAILY 03/18/17 03/03/18 Amlodipine Besylate 1 tab PO DAILY 11/19/17 03/03/18 Levothyroxine Sodium 1 tab PO DAILY 11/19/17 03/03/18 Meclizine HCl 25 mg PO Q6HR PRN #20 tab.chew 11/19/17 Aspirin [Children's Aspirin] 81 mg PO DAILY 03/03/18 03/03/18 Metoprolol Succinate 12.5 mg PO DAILY #30 tab.er.24h 03/04/18 Magnesium Citrate 296 ml PO ONCE PRN #296 ml 08/01/21 polyethylene glycoL 3350 [Miralax] 17 gm PO DAILY PRN #1 bottle 08/01/21 - Allergies Allergies/Adverse Reactions: Allergies Allergy/AdvReac Type Severity Reaction Status Date / Time No Known Drug Allergies Allergy Verified 08/01/21 15:51 - Social History Does the pt smoke?: No Smoking Status: Former smoker Does the pt drink ETOH?: Yes Does the pt have substance abuse?: No - Immunizations Immunizations are current?: Yes - POLST Patient has POLST: No PD ED PE NORMAL - Vitals Vital signs reviewed: Yes - General General: Alert and oriented X 3, No acute distress, Well developed/nourished - HEENT HEENT: PERRL, Moist mucous membranes - Neck Neck: Supple, no meningeal sign - Cardiac Cardiac: RRR, Strong equal pulses - Respiratory Respiratory: No respiratory distress, Clear bilaterally - Abdomen Abdomen: Soft, Non tender, Non distended - Rectal Rectal: Other (Soft stool in rectal vault. Small hemorrhoid, not inflamed or bleeding) - Derm Derm: Warm and dry - Neuro Neuro: Alert and oriented X 3 - Psych Psych: Normal mood, Normal affect Results - Vitals Vitals: Vital Signs - 24 hr 08/01/21 15:47 Temperature 36.4 C L Heart Rate 60 Respiratory 16 Rate Blood Pressure 132/83 H O2 Saturation 96 Oxygen O2 Source Room air PD MEDICAL DECISION MAKING - ED course Complexity details: considered differential, d/w patient ED course: 80-year-old male with constipation. We will have him follow-up with his doctor for further care. States a normal colonoscopy [address] on magnesium citrate and MiraLAX for home. Encouraged increased water intake. Patient counseled regarding signs and symptoms for which I believe and urgent re-evaluation would be necessary. Patient with good understanding of and agreement to plan and is comfortable going home at this time This document was made in part using voice recognition software. While efforts are made to proofread this document, sound alike and grammatical errors may occur. No evidence of bowel obstruction or perforation. Departure - Departure Disposition: 01 Home, Self Care Clinical Impression: Constipation Qualifiers: Constipation type: unspecified constipation type Qualified Code(s): K59.00 - Constipation, unspecified Condition: Good Instructions: ED Constipation Follow-Up: your,doctor in 1-2 weeks [Other] Prescriptions: Magnesium Citrate 296 ml PO ONCE PRN #296 ml PRN Reason: Constipation polyethylene glycoL 3350 [Miralax] 17 gm PO DAILY PRN #1 bottle PRN Reason: Constipation Comments: Your prescriptions were sent to [facility] in [place]. Please follow-up with your doctor for further care. If you continue to have problems, you should have a repeat colonoscopy. Drink plenty of water. Return for vomiting or severe abdominal pain.
== END 2021-08-01 16:22 | disposition home or self-care (01) ==
LOC: ED 15:41
DX: K59.00 Constipation, unspecified (principal); K64.9 Unspecified hemorrhoids; I10 Essential (primary) hypertension; Z79.82 Long term (current) use of aspirin; Z87.891 Personal history of nicotine dependence
CPT/HCPCS: 99282; 99284